=== PATIENT | female | born 1940 | race Caucasian/White ===

== ENCOUNTER → 2018-06-06 | Outpatient (CLI) | payer MEDICARE ==
[~2018-06-06] MED LIST: ACCUPRIL40 MG PO; AMBIEN 10 MG TA10 MG PO; AMITIZA 24 MCG24 MC1 PO; ASPIRIN EC81 M1 PO; ATIVAN0.5 MG PO; ATIVAN1 MG; CALCIUM +D & M1 EACH PO; CARDIZEM CD360 MG; CIPRO500 MG PO; CLONIDINE0.1 PO; DILTIAZEM 24HR240 M1 PO; DILTIAZEM 24HR240 MG PO; DULCOLAX5 MG PO; FLAGYL500 MG PO; HYDROCODONE-AP1 EAC6 PO; LIPITOR40 MG; LOPRESSOR25; LOSARTAN POTASS50 MG PO; METHIMAZOLE5 MG PO; MILK OF MA2400 MG/10 PO; OMEPRAZOLE 20 M20 M1 PO; ONDANSETRON HCL4 M2 PO; PAIN & FEVER500 MG PO; PERCOCET 5-3251 EACH PO; PLAVIX 75 MG TA75 M1 PO; VICODIN 5-5001 EACH PO; VITAMIN D1000 UNI1 PO; ZOCOR40 MG PO; ZYRTEC10 M2 PO
== END ==
LOC: M.CT 06-01 07:42
DX: J32.9 Chronic sinusitis, unspecified (principal); I67.82 Cerebral ischemia; R42 Dizziness and giddiness; I70.1 Atherosclerosis of renal artery; R26.89 Other abnormalities of gait and mobility